=== PATIENT | female | born 1975 | race Caucasian/White ===

== ENCOUNTER 2017-02-10 17:06 | Outpatient (CLI) | payer BC ==
[2011-11-06 12:14] VITALS: BMI 27.4
== END 2017-02-10 17:24 ==
LOC: D.MAMMO 17:06
DX: Z12.31 Encounter for screening mammogram for malignant neoplasm of breast (principal)

== ENCOUNTER → 2020-04-23 11:45 | Outpatient (CLI) | payer MEDICAID ==
[2011-11-06 12:14] VITALS: BMI 27.4
== END | disposition home or self-care (01) ==
LOC: D.MAMMO 11:45
PROVIDERS: ATTEND Obstetrics & Gynecology Gynecology
DX: Z12.31 Encounter for screening mammogram for malignant neoplasm of breast (principal)